=== PATIENT | female | born 1960 | race Caucasian/White ===

== ENCOUNTER 2024-08-10 10:22 | Outpatient (CLI) | payer OTHER, SELFPAY ==
--- NOTE | 2024-08-10 10:25 | MM_ITS ---
PROCEDURE INFORMATION: Exam: MG Bilateral Screening 3D Mammography Exam date and time: 08/10/2024 11:07 AM Age: 63 years old Clinical indication: Screening examination TECHNIQUE: Imaging protocol: Bilateral Screening tomosynthesis and 2D mammography including computer-aided detection (CAD) when performed. COMPARISON: No relevant prior studies available. FINDINGS: MAMMOGRAPHY: Breast composition: There are scattered areas of fibroglandular density. Mass: Questioned 0.9 cm mass upper-outer left breast middle depth with question of associated architectural distortion/change. Architectural distortion: Question of associated architectural distortion with the above-mentioned mass. Calcifications: No suspicious calcifications. Asymmetric density: None. Skin thickening: None. Axillary adenopathy: None. IMPRESSION: Questioned left breast mass.Recommend left breast diagnostic mammogram including spot compression views of the left breast in the CC and MLO projections, a full 90 degree lateral view, and left breast ultrasound for further evaluation. ASSESSMENT: BI-RADS Category 0: Incomplete- Need Additional Imaging Evaluation.
== END 2024-08-10 23:59 | disposition home or self-care (01) ==
LOC: RAD 10:23
PROVIDERS: PCP Nurse Practitioner Family; Visit Provider Nurse Practitioner Family
DX: Z12.31 Encounter for screening mammogram for malignant neoplasm of breast (principal)
CPT/HCPCS: 77063; 77067

== ENCOUNTER 2024-09-07 09:31 | Outpatient (CLI) | payer OTHER, SELFPAY ==
--- NOTE | 2024-09-07 09:34 | MM_ITS ---
PROCEDURE INFORMATION: Exam: US Left Breast, Complete MG Left Diagnostic Breast Tomosynthesis Exam date and time: 09/07/2024 10:07 AM Age: 64 years old Clinical indication: Patient recalled on the basis of a screening mammogram for further evaluation; Left breast; mass TECHNIQUE: Imaging protocol: Complete ultrasound of all four quadrants of the left breast and the retroareolar regions, including ultrasound of the axilla when performed. Left Diagnostic tomosynthesis and 2D mammography including computer-aided detection (CAD) when performed. Unilateral or bilateral exam. COMPARISON: MG MM DIG MAMM DX UNILAT LT CAD 09/07/2024 9:39 AM FINDINGS: MAMMOGRAPHY: Breast composition: There are scattered areas of fibroglandular density. Breast mammogram findings: Digital diagnostic spot compression views of the left breast and 90 degree lateral view of the left breast demonstrate a persistent irregularly marginated 0.9 cm mass with associated architectural distortion there are clustered calcifications along the anterior margin of the mass and distortion the calcifications span 0.5 cm of breast tissue. ULTRASOUND: Breast ultrasound findings: Sonographic images of the left 2 o'clock axis 4 cm from the nipple demonstrates an irregularly marginated hypoechoic mass with associated distortion measuring 0.9 x 0.5 x 0.9 cm in dimension. There is an adjacent similar appearing vertically oriented irregularly marginated hypoechoic solid mass measuring 0.4 x 0.3 x 0.3 cm. No other solid or cystic masses are noted in the remainder of the left breast. No axillary adenopathy IMPRESSION: Two adjacent suspicious masses in the left upper outer quadrant. Ultrasound-guided core biopsy of both masses is recommended for further evaluation. ASSESSMENT: BI-RADS Category 5: Highly suggestive of malignancy.
== END 2024-09-07 23:59 | disposition home or self-care (01) ==
LOC: RAD 09:32
PROVIDERS: PCP Nurse Practitioner Family; Visit Provider Nurse Practitioner Family
DX: N63.21 Unspecified lump in the left breast, upper outer quadrant (principal)
CPT/HCPCS: 76641; 77061; 77065; G0279

== ENCOUNTER 2024-10-06 08:54 | Outpatient (CLI) | payer OTHER, SELFPAY ==
--- NOTE | 2024-10-06 09:06 | US_ITS ---
FINAL REPORT CLINICAL HISTORY: LT BREAST NODULE -- LT BREAST BX -- DR GISELE PETERSON -- MAMMATOME FINDINGS: ULTRASOUND-GUIDED LEFT BREAST CORE BIOPSY TECHNIQUE: Limited images were obtained to localize region of interest. The left was prepped in a routine sterile fashion and locally anesthetized with 1% lidocaine. Standard written informed consent was obtained. An 11-gauge vacuum assisted hand-held device was utilized. Although 2 lesions were described in the left upper outer quadrant this was essentially one contiguous process. The needle was positioned posterior to the lesion. Multiple vacuum assisted core samples were obtained. The lesion was noted to be significantly smaller following biopsy. A biopsy marker clip was deployed in satisfactory position. Postbiopsy mammogram showed postbiopsy changes with clip in satisfactory position. Procedure was well tolerated . CONCLUSION: 1. Technically successful ultrasound guided core vacuum assisted biopsy of left breast lesion as above. 2. Biopsy marker clip deployed Histopathology results reveal invasive ductal carcinoma.. Pathology is concordant with mammographic findings. Surgical and medical oncologic follow-up needed.. Authenticated and ERN
--- NOTE | 2024-10-06 09:06 | MM_ITS ---
FINAL REPORT CLINICAL HISTORY: post bx, clip placement FINDINGS: MAMMOGRAM LEFT TECHNIQUE: Standard digital 2-D views COMPARISON: 08/10/2024 and 09/07/2020 DENSITY: There are scattered areas of fibroglandular density FINDINGS: Post biopsy marker clip is noted to be in satisfactory position. The biopsy marker clip is seen at approximately 2:00. Postbiopsy changes are noted. IMPRESSION: Biopsy marker clip in good position ASSESSMENT: A post-procedure mammogram is used to confirm the position and deployment of a breast tissue marker after a biopsy RECOMMENDATION: Pathology reveals invasive ductal carcinoma. Surgical and medical oncologic follow-up recommended. Authenticated and ERN
== END 2024-10-06 23:59 | disposition home or self-care (01) ==
LOC: RAD 08:55
PROVIDERS: PCP Nurse Practitioner Family; Visit Provider Nurse Practitioner Family
DX: C50.912 Malignant neoplasm of unspecified site of left female breast (principal)
CPT/HCPCS: 19083; 77065; C2618